=== PATIENT | male | born 1950 | race Caucasian/White ===

== ENCOUNTER → 2022-10-22 17:07 | Outpatient (CLI) | payer MEDICARE, OTHER, SELFPAY ==
[2022-10-22 17:48] LABS: Add Manual Diff / Slide Review NO; Basophils Absolute Auto 0 /uL (0-100); Basophils Percent Auto 0.5 % (0-2); Eosinophils Absolute Auto 300 /uL (0-450); Eosinophils Percent Auto 3.8 % (2-4); Hematocrit 39.7 % (41-53); Hemoglobin 13.4 g/dL (13.5-17.5); Lymphocytes Absolute Auto 1500 /uL (1100-4500); Lymphocytes Percent Auto 17.4 % (25-40); Mean Corpuscular HGB Conc 33.8 % (30-36); Mean Corpuscular Hemoglobin 29.3 PG (26-34); Mean Corpuscular Volume 86.8 fL (80-100); Monocytes Absolute Auto 600 /uL (0-900); Monocytes Percent Auto 6.9 % (3-14); Neutrophils Absolute Auto 6300 /uL (1500-7000); Neutrophils Percent Auto 71.4 % (50-75); Platelet Count 290 X10^3/uL (150-400); Red Blood Cell Count 4.58 X10^6/uL (4.5-5.9); White Blood Cell Count 8.8 X10^3/uL (4.5-11.0)
[2022-10-22 18:10] LABS: Appearance Urine UA CLEAR; Bilirubin Urine UA NEGATIVE (NEGATIVE); Blood Urea Nitrogen 40 mg/dL (9-20); Calcium 9.2 mg/dL (8.4-10.2); Carbon Dioxide 26 mmol/L (22-32); Chloride 105 mmol/L (98-107); Color Urine UA YELLOW; Estimated Glomerular Filt Rate 41 mL/min (>60); Glucose 95 mg/dL (80-110); Glucose Urine UA NEGATIVE (Negative); HEMOLYSIS < 15 (0-50); Ketones Urine UA NEGATIVE (NEGATIVE); Leukocyte Esterase Urine UA NEGATIVE (NEGATIVE); Nitrite Urine UA NEGATIVE (Negative); Occult Blood Urine UA NEGATIVE (Negative); Potassium 4.2 mmol/L (3.4-5.1); Protein Urine UA NEGATIVE (Negative); Sodium 139 mmol/L (137-145); Specific Gravity Urine UA 1.015 (1.000-1.035); Urobilinogen Urine UA 0.2 E.U./dL (0.2); pH Urine UA 5.5 (4.5-8.0)
[2022-10-22 18:31] LABS: Bacteria Urine None Seen; Culture Indicated Urine Cult Not Indicated; RBC Urine None Seen (0-5/HPF); Squamous Epithelial Cell Urine None Seen (0-5/HPF); WBC Urine None Seen (0-5/HPF)
[2022-10-24 08:39] LABS: Labcorp Hemoglobin (Hb) A1c 5.7 % (4.8-5.6)
== END ==
PROVIDERS: PCP Physician Assistant; Referring Provider Orthopaedic Surgery; Visit Provider Orthopaedic Surgery
DX: R73.9 Hyperglycemia, unspecified; Z01.818 Encounter for other preprocedural examination; Z01.812 Encounter for preprocedural laboratory examination; N39.0 Urinary tract infection, site not specified
CPT/HCPCS: 80048; 81001; 83036; 85025

== ENCOUNTER → 2022-10-23 08:20 | Outpatient (CLI) | payer MEDICARE, OTHER, SELFPAY | PROVIDERS: PCP Physician Assistant; Referring Provider Orthopaedic Surgery; Visit Provider Orthopaedic Surgery | DX: Z01.818 Encounter for other preprocedural examination (principal) | CPT/HCPCS: 93005; 93010 ==

== ENCOUNTER 2022-12-03 08:20 | Day surgery (SDC) | payer MEDICARE, OTHER, SELFPAY ==
[2022-11-16 11:56] VITALS: BMI 34.7
[2022-12-03] VITALS (14 sets, daily range): BP systolic 118–193; BP diastolic 61–90; PULSE 60–71; RESP 12–20; TEMP 35.9–36.6; O2SAT 92–98; BMI 34.9
--- NOTE | 2022-12-03 06:00 | DI.RAD.S_ITS ---
PROCEDURE: XR PELVIS 1-2V INDICATIONS: INNER OP TECHNIQUE: Intra-operative view of the pelvis and hip acquired. COMPARISON: None. FINDINGS: Bones: A single AP pelvis film obtained during total right hip arthroplasty demonstrates no abnormalities. No fractures or suspicious bony lesions. Soft tissues: Overlying surgical retractors are present, along with other intraoperative changes. IMPRESSION: Imaging obtained during right hip ORIF without evidence of complications. Dictated by: Erick Argueta M.D. on 12/03/2022 at 15:55 Approved by: Erick Argueta M.D. on 12/03/2022 at 15:56
[2022-12-03] MEDS: ACETAMINOPHEN 325 MG TABLET 975 MG PO (09:10)
[2022-12-03] MEDS: PREGABALIN 75 MG CAPSULE PO (09:10)
[2022-12-03] MEDS: CELECOXIB 200 MG CAPSULE PO (09:10)
[2022-12-03] MEDS: LACTATED RINGERS 1,000 ML 42 ML IV ×2 (09:11→13:27)
[2022-12-03] MEDS: VANCOMYCIN 1,000 MG/200 ML PIGGYBACK 200 MG IV (10:48)
--- NOTE | 2022-12-03 11:09 | PM.PREOP ---
Pre-operative Note COVID-19 COVID-19 status: Negative Interval Note History & Physical reviewed/Exam performed by Physician: Yes Changes to H&P: No
--- NOTE | 2022-12-03 11:10 | P.OP_ITS ---
Operative Date/Time/Diagnoses Date of procedure: 12/03/22 Time of procedure: 11:45 Pre-op diagnosis: right hip OA Post-op diagnosis: same Procedure & Clinicians Procedure: right total hip arthroplasty posterior approach Same procedure as scheduled: Yes Indications: The patient has had progressively worsening right hip pain with radiographic changes consistent with arthritis. Non-operative management has failed and the patient has requested total hip replacement. The risks, benefits and alternatives to surgery were discussed with the patient prior to proceeding. Risks discussed included, but were not limited to, failure to relieve pain, leg length discrepancy, dislocation, stiffness, infection, nerve damage, deep venous thrombosis, pulmonary embolism, stroke, coma, heart attack, permanent paralysis and , as well as the potential need for eventual revision of the prosthetic. Surgeon: Deysi Monroe Guest Service Representative: Bhumi Anguiano Operative Notes Findings: Severe right hip osteoarthritis, adequate stability, adequate bone Closure Type: primary Specimen(s): none sent Prosthetic devices, grafts, tissues, transplants, or devices: Monroe and nephew R3 Estimated Blood Loss (mL): 250 Blood products transfused: none Procedure in detail: The patient was seen in the pre-operative area, where the patient identified the right hip as the operative site and this was marked with my initials. The patient received pre-operative antibiotics and was taken to the operating room and placed on the operative table in the left lateral decubitus position after satisfactory anesthesia. A remote sensing analyst out was performed. The right leg was prepared from the ankle to the iliac crest with ChloroPrep in the usual fashion and draped through sterile drapes. A PA was used throughout the procedure and was essential for retraction and safe implantation of the components. The hip was approached through an approximately 20 cm incision centered over the greater trochanter and curving gently posteriorly as it went proximally. This was carried sharply to the fascia isabelle, which was divided and retracted with a self retaining retractor. The trochanteric bursa was excised with care being taken to avoid the sciatic nerve, which was identified and protected throughout the case. The short external rotators were incised and the capsulomuscular flap was raised and tagged for later repair. The hip was dislocated, and a femoral neck osteotomy performed approximately 15 mm above the lesser trochanter. Retractors were placed around the femur. The canal was opened with a box cutting osteotome, followed by a T handled reamer and a lateralizing reamer. The chili pepper broach was then used, followed by sequential broaching until there was good stability of the broach in the femur. Retractors were placed to expose the acetabulum. The labrum and central soft tissues were removed. Reaming was performed initially going up in 2 mm increments, then 1 mm increments until good bite was obtained with an odd sized reamer. The cup 1 mm larger than the last reamer was then inserted using the appropriate anteversion guides. It was further stabilized with a single screw. A trial neutral liner was placed. The broach was placed in the canal. A trial head and neck were then placed and the hip relocated and checked for leg length and stability. An intraoperative film confirmed the component position and no evidence of fracture. The patient was stable in the position of sleep, of squatting, and could be put through a range of motion with 45 degrees internal rotation without dislocation. At 90 degrees flexion, internal rotation to [] was possible before dislocation. This was felt to be satisfactory and the appropriate components were opened, and the trials were removed. The acetabular liner was impacted into position. The final stem was then impacted into the prepared femoral canal. A brief Betadine soak was performed while trialing with head options. The hip was meticulously irrigated with normal saline. Finally the femoral head was impacted onto the stem. The acetabulum was cleared of all material and the hip relocated one final time. The capsulomuscular flap was then repaired to the greater trochanter though an awl hole using the tag sutures. The short external rotators were repaired with a nonabsorbable suture. The fascia isabelle was closed with Vicryl. The subcutaneous layer was closed with barbed sutures and SteriStrips. An Aquacel Ag dressing was applied and the patient was taken to recovery having tolerated the procedure well. Complications: none Post-operative Condition: stable Disposition: Acute Care Plan for aftercare: The patient will be maintained on a standard total hip replacement protocol with weight bearing as tolerated and posterior hip precautions. The patient will receive Aspirin and sequential compression devices for DVT prophylaxis. The patient will be discharged home when safe for the home environment.
--- NOTE | 2022-12-03 12:10 | PM.OP.1 ---
Operative Date/Time/Diagnoses Date of procedure: 12/03/22 Time of procedure: 11:50 Pre-op diagnosis: Severe right hip OA Post-op diagnosis: same Procedure & Clinicians Procedure: Right total hip arthroplasty posterior approach Same procedure as scheduled: Yes Indications: The patient has had progressively worsening right hip pain with radiographic changes consistent with arthritis. Non-operative management has failed and the patient has requested total hip replacement. The risks, benefits and alternatives to surgery were discussed with the patient prior to proceeding. Risks discussed included, but were not limited to, failure to relieve pain, leg length discrepancy, dislocation, stiffness, infection, nerve damage, deep venous thrombosis, pulmonary embolism, stroke, coma, heart attack, permanent paralysis and , as well as the potential need for eventual revision of the prosthetic. Surgeon: Deysi Monroe Corporate Quality Engineer: Bhumi Anguiano Anesthesia Type: General and Spinal Operative Notes Findings: Severe right hip osteoarthritis, stiff hip, moderate scarring between fascia and bursa, yazidism of leg length, adequate bone quality, adequate stability Closure Type: primary Specimen(s): none sent Prosthetic devices, grafts, tissues, transplants, or devices: Monroe [employer] Nephew R3 size 56, neutral poly liner, one 6.5 mm screw, polar stem size 4 with collar, 36 x +4 cobalt chrome head Estimated Blood Loss (mL): 250 Blood products transfused: none Procedure in detail: The patient was seen in the pre-operative area, where the patient identified the right hip as the operative site and this was marked with my initials. The patient received pre-operative antibiotics and was taken to the operating room and placed on the operative table in the left lateral decubitus position after satisfactory anesthesia. A full time paramedic out was performed. The right leg was prepared from the ankle to the iliac crest with ChloroPrep in the usual fashion and draped through sterile drapes. A PA was used throughout the procedure and was essential for retraction safe implantation of the components. They were also helpful for visualization and hemostasis. The hip was approached through an approximately 20 cm incision centered over the greater trochanter and curving gently posteriorly as it went proximally. This was carried sharply to the fascia isabelle, which was divided and retracted with a self retaining retractor. The trochanteric bursa was excised with care being taken to avoid the sciatic nerve, which was identified and protected throughout the case. The short external rotators were incised and the capsulomuscular flap was raised and tagged for later repair. The hip was dislocated, and a femoral neck osteotomy performed approximately 15 mm above the lesser trochanter. Retractors were placed around the femur. The canal was opened with a box cutting osteotome, followed by a T handled reamer and a lateralizing reamer. The chili pepper broach was then used, followed by sequential broaching until there was good stability of the broach in the femur. Retractors were placed to expose the acetabulum. The labrum and central soft tissues were removed. Reaming was performed initially going up in 2 mm increments, then 1 mm increments until good bite was obtained with an odd sized reamer. The cup 1 mm larger than the last reamer was then inserted using the appropriate anteversion guides. It was further stabilized with a single screw. A trial neutral liner was placed. The broach was placed in the canal. A trial head and neck were then placed and the hip relocated and checked for leg length and stability. An intraoperative film confirmed the component position and no evidence of fracture. The patient was stable in the position of sleep, of squatting, and could be put through a range of motion with 45 degrees internal rotation without dislocation. At 90 degrees flexion, internal rotation to 70? was possible before dislocation. This was felt to be satisfactory and the appropriate components were opened, and the trials were removed. The acetabular liner was impacted into position. The final stem was then impacted into the prepared femoral canal. A brief Betadine soak was performed while trialing with head options. The hip was meticulously irrigated with normal saline. Finally the femoral head was impacted onto the stem. The acetabulum was cleared of all material and the hip relocated one final time. The capsulomuscular flap was then repaired to the greater trochanter though an awl hole using the tag sutures. The short external rotators were repaired with a nonabsorbable suture. The fascia isabelle was closed with Vicryl. The subcutaneous layer was closed with barbed sutures and surgical glue. A Doni dressing was applied and the patient was taken to recovery having tolerated the procedure well. Complications: none Post-operative Condition: stable Disposition: Acute Care Plan for aftercare: The patient will be maintained on a standard total hip replacement protocol with weight bearing as tolerated and posterior hip precautions. The patient will receive Eliquis and sequential compression devices for DVT prophylaxis. The patient will be discharged home when safe for the home environment.
[2022-12-03] MEDS: TRANEXAMIC ACID 1,000 MG VIAL 1000 MG INJ (12:35)
[2022-12-03] MEDS: CEFAZOLIN 2 GM/100 ML PREMIX 100 ML IV ×2 (12:40→21:00)
--- NOTE | 2022-12-03 12:50 | SUR.OPER ---
Lateral on padded OR bed. Gel axillary roll. Arms secured on padded armboard with pillow supporting top arm. Padded hip positioner braces x4 - anterior and posterior chest and pelvis. Additional gel pad used anterior pelvis. Gel pad under bottom leg from knee to foot and secured with tape over sheet.
[2022-12-03] MEDS: BUPIVACAINE LIPOSOME 266 MG/20 ML VIAL INJ (13:02)
[2022-12-03] MEDS: BUPIVACAINE 0.25% (PF) 60 ML, EPINEPHrine 0.3 MG INJ (13:04)
[2022-12-03] MEDS: SODIUM CHLORIDE IRRIG SOLUTION 250 ML, POVIDONE-IODINE SPONGE STICKS 1 APPLIC IRR (13:37)
--- NOTE | 2022-12-03 15:00 | DI.RAD.S_ITS ---
PROCEDURE: XR HIP W PEL IF DONE RT 2V INDICATIONS: POST OP RIGHT HIP TECHNIQUE: AP pelvis and lateral view of the right hip acquired. COMPARISON: [facility], CR, XR PELVIS WITH LATERAL HIP RIGHT, 10/02/2022, 17:51. [facility], CR, XR PELVIS 1-2V, 12/03/2022, 13:45. FINDINGS: Bones: Patient is status post right hip arthroplasty, with hardware components in expected positions. The hip joint appears congruent. The visualized bony structures appear intact. Soft tissues: Overlying postoperative changes are noted. No suspicious soft tissue densities. IMPRESSION: Expected postsurgical change for right hip arthroplasty. Dictated by: Fabiana Saba MD, PhD on 12/03/2022 at 16:19 Approved by: Fabiana Saba MD, PhD on 12/03/2022 at 16:20
[2022-12-03] MEDS: LACTATED RINGERS 1,000 ML 100 ML IV (17:09)
[2022-12-03] MEDS: ACETAMINOPHEN 325 MG TABLET 650 MG PO ×2 (17:14→21:43)
[2022-12-03] MEDS: IBUPROFEN 400 MG TABLET PO (17:15)
[2022-12-03] MEDS: HYDRALAZINE 25 MG TABLET 50 MG PO (20:51)
[2022-12-03] MEDS: ASPIRIN EC 81 MG TABLET PO (20:51)
[2022-12-03] MEDS: AMLODIPINE 5 MG TABLET PO (20:51)
[2022-12-03] MEDS: DOCUSATE 100 MG CAPSULE PO (20:52)
[2022-12-03] MEDS: carvediloL 12.5 MG TABLET 37.5 MG PO (20:52)
[2022-12-03] MEDS: lisinopriL 20 MG TABLET PO (20:52)
[2022-12-04] VITALS (8 sets, daily range): BP systolic 115–129; BP diastolic 47–63; PULSE 60–64; RESP 16–17; TEMP 36.2–36.6; O2SAT 92–93
[2022-12-04] MEDS: CEFAZOLIN 2 GM/100 ML PREMIX 100 ML IV (05:55)
[2022-12-04] MEDS: IBUPROFEN 400 MG TABLET PO ×2 (05:55→10:28)
[2022-12-04] MEDS: ACETAMINOPHEN 325 MG TABLET 650 MG PO ×2 (05:55→10:28)
--- NOTE | 2022-12-04 07:12 | PM.DS.1 ---
History of Present Illness History of Present Illness Date Patient Seen: 12/04/22 Time Patient Seen: 07:12 Chief complaint: Right ZACHERY *OPB* Narrative: Operative Date/Time/Diagnoses Date of procedure: 12/03/22 Time of procedure: 11:50 Pre-op diagnosis: Severe right hip OA Post-op diagnosis: same Procedure & Clinicians Procedure: Right total hip arthroplasty posterior approach Same procedure as scheduled: Yes Indications: The patient has had progressively worsening right hip pain with radiographic changes consistent with arthritis. Non-operative management has failed and the patient has requested total hip replacement. The risks, benefits and alternatives to surgery were discussed with the patient prior to proceeding. Risks discussed included, but were not limited to, failure to relieve pain, leg length discrepancy, dislocation, stiffness, infection, nerve damage, deep venous thrombosis, pulmonary embolism, stroke, coma, heart attack, permanent paralysis and , as well as the potential need for eventual revision of the prosthetic. Surgeon: Deysi Monroe Streetcar Starter: Bhumi Anguiano Anesthesia Type: General and Spinal Operative Notes Findings: Severe right hip osteoarthritis, stiff hip, moderate scarring between fascia and bursa, sabianist of leg length, adequate bone quality, adequate stability Closure Type: primary Specimen(s): none sent Prosthetic devices, grafts, tissues, transplants, or devices: Monroe and Nephew R3 size 56, neutral poly liner, one 6.5 mm screw, polar stem size 4 with collar, 36 x +4 cobalt chrome head Estimated Blood Loss (mL): 250 Blood products transfused: none Discharge Providers Provider Discharge Date: 12/04/22 Primary care physician: Jerome Dong PA-C Consults: 11/16/22 12:58 Consult to Anesthesiology Routine Comment: Consulting Provider: Anesthesiologist Reason for consultation: Surgeon requested re: Cardiac history 12/03/22 06:00 Consult to Anesthesiology Routine Comment: Consulting Provider: Anesthesiologist Reason for consultation: Regional block for post operative pain control 12/03/22 16:10 Consult to Discharge Planning Routine Comment: Consult to Occupational Therapy Evaluate & Treat Comment: Physician Instructions: Evaluate and treat Consult to Physical Therapy Evaluate & Treat Comment: Physician Instructions: post op ZACHERY protocol Discharge provider: Becky Mendoza PA-C Summary Hospital Course Discharge Diagnosis: Right hip osteoarthritis, s/p right total hip arthroplasty Hospital Course: Mr Rodriguez'yarelis hospital course was unremarkable. On the morning of POD# 1, he was feeling well and wanted to go home. He had not yet been OOB or worked w/ PT, but he was eating and voiding without difficulty. His pain was well-controlled with oral medication. Exam Vital Signs (past 8 hours): - 12/04/22 00:40 12/04/22 06:00 Temperature 97.2 F L 97.6 F Pulse Rate 62 62 Respiratory Rate 17 16 Blood Pressure 115/61 129/54 L Pulse Oximetry 92 92 Oxygen Flow Rate 0 0 Oxygen Delivery Method Room Air Oxygen Flow Rate 0 Narrative Exam Narrative: 5/5 strength in hip flexors, quadriceps, hamstrings, DF, PF, EHL on right. Sensation to light touch intact throughout RLE. Calf soft, compressible, nontender. Aquacel dressing CDI. [facility] Medical History (Updated 11/16/22 @ 12:37 by Shavonne German RN) CAD (coronary artery disease) CHF (congestive heart failure) (~2015) History of COVID-19 (~2019) HLD (hyperlipidemia) HTN (hypertension) LAFB (left anterior fascicular block) Melanoma (1986) Nonischemic cardiomyopathy Osteoarthritis Pacemaker (01/23/22) Prostate cancer (2012) RBBB (right bundle branch block) Surgical History (Updated 11/16/22 @ 12:37 by Shavonne German RN) H/O vasectomy History of ankle surgery History of total left knee replacement History of total right knee replacement Hx of cardiac cath (~2015) Hx of prostatectomy (2012) Social History household members: spouse Smoking Status: Never smoker alcohol intake: never Discharge Assessment & Plan Assessment and Plan Assessment: Right hip osteoarthritis, s/p right total hip arthroplasty Plan of Treatment: Discharge home after PT if PT agrees. Pt has pain med rxs at home. Will continue ASA and Eliquis as preop for VTE prophylaxis. Outpt PT, f/u in office in 2 weeks as scheduled. Discharge Plan Discharge Plan Patient Disposition: Home Discharge orders & Medications Discharge Orders: Discharge (Order); Ordered 12/04/22 Ordered By: Becky Mendoza Prescriptions: Continued carvedilol 25 mg Tablet 37.5 mg PO BID Rx Instructions: must administer with a meal/food amiodarone 200 mg Tablet 200 mg PO DAILY lisinopril 20 mg Tablet 20 mg PO BID amlodipine 5 mg Tablet 5 mg PO BID aspirin [Aspir-81] 81 mg Tablet,Delayed Release (Dr/Ec) 81 mg PO DAILY hydralazine 50 mg Tablet 50 mg PO BID furosemide 20 mg Tablet 20 mg PO QAM diphenhydramine-acetaminophen [Acetaminophen PM] 25-500 mg Tablet 2 tab PO BEDTIME PRN (Reason: Pain, sleep) Eliquis 5 mg Tablet 5 mg PO BID Follow up/Referrals: Jerome Dong PA-C [Primary Care Provider] - Deysi Monroe MD [Physician] - As previously scheduled (Follow up w/ Monisha Anguiano PA-C, on 12/18/2022 @ 10:30 am at [facility] in [place].) Diet/Activity/Treatments Diet: Diet as Tolerated Activity: Weightbearing as tolerated to right leg. Posterior hip precautions. Cold/Heat Therapy: Ice to hip as needed for pain. Skin/Wound/Dressing Care Report to your healthcare provider any signs of infection, such as:: chills, fever, night sweats, unusual drainage and unusual redness Dressing: May shower. Leave dressing in place until follow up in office. No bathing or otherwise soaking incision. Call the office if the dressing becomes saturated inside. Visit Report/Discharge Packet Instructions: DI for Hip Replacement Stand Alone Forms: Patient Portal/API, Surgery Discharge Discharge Data Primary Care Provider: Jerome Dong Attending Provider: Deysi Monroe Quality VTE Deep Vein Thrombosis/Pulmonary Embolism Present on Admission: No
[2022-12-04 07:36] LABS: Hematocrit 35.6 % (41-53)
[2022-12-04] MEDS: AMIODARONE 200 MG TABLET PO (08:27)
[2022-12-04] MEDS: ASPIRIN EC 81 MG TABLET PO (08:27)
[2022-12-04] MEDS: HYDRALAZINE 25 MG TABLET 50 MG PO (08:27)
[2022-12-04] MEDS: lisinopriL 20 MG TABLET PO (08:28)
[2022-12-04] MEDS: carvediloL 12.5 MG TABLET 37.5 MG PO (08:29)
[2022-12-04] MEDS: AMLODIPINE 5 MG TABLET PO (08:29)
[2022-12-04] MEDS: FUROSEMIDE 20 MG TABLET PO (08:30)
--- NOTE | 2022-12-04 09:38 | OT.IP.EVAL ---
Current Diagnoses Unilateral primary osteoarthritis, right hip (12/03/22) Surgery Performed Operation Date: 12/03/22 10:45 Actual Procedures p Total Hip Arthroplasty(Right) - Deysi Monroe MD Past Medical History (Last Updated 11/16/22 @ 12:37 by Shavonne German, RN) CAD (coronary artery disease) CHF (congestive heart failure) (~2015) History of COVID-19 (~2019) HLD (hyperlipidemia) HTN (hypertension) LAFB (left anterior fascicular block) Melanoma (1986) Nonischemic cardiomyopathy Osteoarthritis Pacemaker (01/23/22) Prostate cancer (2012) RBBB (right bundle branch block) Surgical History (Last Updated 11/16/22 @ 12:37 by Shavonne German, SARAH) H/O vasectomy History of ankle surgery History of total left knee replacement History of total right knee replacement Hx of cardiac cath (~2015) Hx of prostatectomy (2012) Occupational Therapy Inpatient Evaluation/Re-Eval M1 PT/OT-IP Prior Functional Status Start: 12/04/22 10:33 Freq: NEEDED Status: Active Protocol: Document 12/04/22 10:34 CGR (Rec: 12/04/22 10:54 CGR [id number]) Medical Review Prior Functional Status Medical History Reviewed Yes Communication Pt is an effective verbal communicator. Mobility and Gait Pt was IND at baseline but sometimes used a SPC as pain increased Activities of Daily Living and IADL's Pt was IND for most ADLs but needed assist with LB dressing to the RLE. Social History Household Members spouse Living Arrangements House Number of Floors (Floors) Two Floors Number of Stairs To Enter/Railing? 1 5 inch step to enter and stays on the entry level account representative. Home Environment Standard Height Toilet,Walk in Shower,Built-In Shower Seat Home Equipment Front Wheel Walker,Straight Cane,Shower Seat without Backrest,Hand Held Shower Employment Status Retired Additional Social History Comment Pt lives in his long time home on the main level and does not go upstairs. Pt's daughter and family live in the upstairs and pt's assists with all needs. M2 OT-IP Current Condition Start: 12/04/22 10:33 Freq: Status: Active Protocol: Document 12/04/22 10:34 CGR (Rec: 12/04/22 10:54 CGR [id number]) Occupational Therapy Current Condition Current Condition Evaluation Date 12/04/22 Treatment Diagnosis R ZACHERY posterior Diagnosis Onset Date 12/03/22 Post Operative Precautions Posterior Hip Precautions No Hip Flexion > 90 degrees,No Hip Internal Rotation,No Hip Adduction Weight Bearing Status Weight Bearing Status Weight Bear as Tolerated M3 OT- IP Subjective and Pain Start: 12/04/22 10:33 Freq: Status: Active Protocol: Document 12/04/22 10:34 CGR (Rec: 12/04/22 10:54 CGR [id number]) OT- Subjective Occupational Therapy Visit Type Type Initial Evaluation Visit Start Time 08:41 Visit Stop Time 09:38 Total Visit Minutes 57 Notes Pt's present throughout OT Pain Assessment Pain When Pain Assessed At Rest Pain Present Pain Present Pain Reported Location R hip Intensity 4 Scale Used Numeric (0 - 10) Management Techniques Distraction,Modification of Treatment,Re-positioning, Timing of Activity with Medications M4 OT- IP ADL's Start: 12/04/22 10:33 Freq: Status: Active Protocol: Document 12/04/22 10:34 CGR (Rec: 12/04/22 10:54 CGR [id number]) OT [id number]-[id number] General Evaluation Self-Feeding Ability Independent Comments OT Self-Feeding Comments Pt finishing breakfast when OT entered OT ADL-Grooming General Evaluation Grooming Ability Independent Areas Needing Assistance Face Washing Comments OT Grooming Comments standing at sink OT ADL-Oral Care General Eval Oral Care Ability Independent Areas of Assistance Brushing Teeth Comments Oral Care Comments standing at sink OT ADL-Dressing General Eval Lower Body Dressing Ability Total Assistance Areas Needing Assistance Socks Comments OT Dressing Comments Pt educated on use of ground operations supervisor and sock aide but declined to perform. Pt states his will assist. OT ADL-Toileting General Evaluation Toileting Ability Independent Comments OT Toileting Comments Pt simulated urination seated on toielt OT ADL-Bathing Comments OT Bathing Comments not performed M5 OT- IP IADL's Start: 12/04/22 10:33 Freq: Status: Active Protocol: Document 12/04/22 10:34 CGR (Rec: 12/04/22 10:54 R [id number]) OT-Instrumental Activities of Daily Living Deficits IADL Deficits Identified No Deficits Home Safety Awareness Awareness of Need for Assistance at Home Good Awareness Ability to Problem Solve Emergency Able to Problem Solve Situations Medication Management Medication Management Caregiver Administers Money Management Money Management Caregiver Provides Assistance Meal Preparation Meal Preparation Caregiver Provides Assist Refueling Rampman Refueling Rampman Caregiver Provides Assist Driving Driving Comments Pt's will drive M6 OT- IP Functional Cognition Start: 12/04/22 10:33 Freq: Status: Active Protocol: Document 12/04/22 10:34 CGR (Rec: 12/04/22 10:54 R [id number]) Cognitive Factors Limiting Selfcare Function Cognitive Ability Level of Alertness Alert Patient Orientation Name,Age,Birthday,Month,Date, Year,Day of Week,Place, Situation Attention Span Ability Capable of Focused Attention, Capable of Sustained Attention Ability to Follow Commands Able to Follow One Step Commands with Increased Time, Able to Follow One Step Commands with Repetition Cognitive Comments Cognitive Assessment Comments Pt did ask the same question twice with ~20 minutes in between asking but no other identified concerns with cognition. OT- Vision and Hearing OT- Hearing Assessment OT- Hearing Assessment WFL OT- Vision Assessment Visual Acuity Glasses All The Time Visual Attentiveness WFL Occular Pursuits WFL Visual Convergence WFL M7 OT- IP Mobility and Balance Start: 12/04/22 10:33 Freq: Status: Active Protocol: Document 12/04/22 10:34 CGR (Rec: 12/04/22 10:54 R [id number]) OT- Bed Mobility Assessment Supine to Sit Supine to Sit Assist Standby Assistance Scooting Scooting to Edge of Bed Standby Assistance OT-Transfer Assessment Sit to and From Stand Sit to and from Stand Standby Assistance Transfers Transfer Ability Standby Assistance Technique Transfer Destination Bed,Chair,Toilet Transfer Technique Stand Step Pivot Devices Transfer Assistive Devices Gait Belt,Front Wheeled Walker Comments Mobility Comments Pt uses the walker with a slightly higher height then typically recommend as he is unable to fully extend his elbows at his baseline. Pt ambulates around the room with SBA and FWW. OT- Gait Assessment Gait Gait Assistance Required: Standby Assistance Assistive Devices Assistive Device Gait Belt,Front Wheeled Walker OT- Balance Assessment Sitting Balance and Reactions Static Sitting Balance Ability Normal Dynamic Sitting Balance Ability Good M8 OT- IP Objective Assessments Start: 12/04/22 10:33 Freq: Status: Active Protocol: Document 12/04/22 10:34 CGR (Rec: 12/04/22 10:54 R [id number]) OT Gross Range of Motion Upper Extremity Range of Motion Assessment Within Functional Limits OT Strength Upper Extremity Strength Assessment Within Functional Limits OT- Coordination Assessment Upper Extremity Finger to Nose Test Within Functional Limits Finger Tapping Test Within Functional Limits OT-Muscle Tone Assessment Muscle Tone WNL Yes OT Sensation Assessment Edema Edema Absent M9 OT- IP Assessment and Plan Start: 12/04/22 10:33 Freq: Status: Active Protocol: Document 12/04/22 10:34 CGR (Rec: 12/04/22 10:54 CGR [id number]) OT Summary Assessment and Plan Potential Rehabilitation Potential Excellent Analytic Complexity at Evaluation Low Summary OT Impairments Pain,Balance,Functional Mobility,Grooming,Dressing, Toileting,Bathing,Toilet Transfers,Shower Transfers, Activity Tolerance Progress Towards Goals Progressing Toward Goals Assessment Summary Pt presents as a low complexity evaluation s/p admit for R ZACHERY. Pt is WBAT and ambulating around the room with SBA. Pt is safe for discharge home at this time. Pt could benefit from further OT services while hospitalized for greater understanding of LB dressing and bathing assessment. Recommendation is home with assist. Goals Grooming Goal Independent Dressing Goal Independent,Cut Off Saw Tender Metal,Sock Aid Toileting Goal Independent Bathing Goal Independent Toilet Transfer Goal Independent Shower Transfer Goal Independent Days to Meet Goals 10 Frequency of Treatment Frequency Of Treatment Once a Day Treatment Plan OT Treatment Plan ADL Training,Functional Mobility,Patient/Family Education,Discharge Planning Other Treatment Recommendations and Next shower Treatment Focus Discharge Recommendations OT Discharge Recommendations Home with Assistance Transportation Needs at Discharge Private Vehicle
--- NOTE | 2022-12-04 11:31 | PT.IIE ---
Current Diagnoses Unilateral primary osteoarthritis, right hip (12/03/22) Surgery Performed Operation Date: 12/03/22 10:45 Actual Procedures p Total Hip Arthroplasty(Right) - Deysi Monroe MD Surgical History (Last Updated 11/16/22 @ 12:37 by Shavonne German RN) H/O vasectomy History of ankle surgery History of total left knee replacement History of total right knee replacement Hx of cardiac cath (~2015) Hx of prostatectomy (2012) Medical History (Last Updated 11/16/22 @ 12:37 by Shavonne German RN) CAD (coronary artery disease) CHF (congestive heart failure) (~2015) History of COVID-19 (~2019) HLD (hyperlipidemia) HTN (hypertension) LAFB (left anterior fascicular block) Melanoma (1986) Nonischemic cardiomyopathy Osteoarthritis Pacemaker (01/23/22) Prostate cancer (2012) RBBB (right bundle branch block) Physical Therapy Inpatient Evaluation/Re-Eval M1 PT/OT-IP Prior Functional Status Start: 12/04/22 13:07 Freq: NEEDED Status: Active Protocol: Document 12/04/22 11:31 AB (Rec: 12/04/22 13:16 AB [id number]) Medical Review Prior Functional Status Medical History Reviewed Yes Communication able to make needs known Mobility and Gait pt stated that he is independent with all mobilties and ambulation without AD but has been using a SPC for the last 2 months due to hip pain Activities of Daily Living and IADL's per OT note:Pt was IND for most ADLs but needed assist with LB dressing to the RLE. Social History Household Members spouse Living Arrangements House Number of Floors (Floors) Two Floors Number of Stairs To Enter/Railing? pt stays on the main level of the house 1 step to enter Home Environment Standard Height Toilet,Walk in Shower,Built-In Shower Seat Home Equipment Front Wheel Walker,Straight Cane,Shower Seat without Backrest,Hand Held Shower,Grab Bars Near Toilet,Grab Bars In Shower Employment Status Retired Additional Social History Comment Pt lives in his long time home on the main level and does not go upstairs. Pt's daughter and family live in the upstairs and pt's assists with all needs. M2 PT-IP Current Condition Start: 12/04/22 13:07 Freq: NEEDED Status: Active Protocol: Document 12/04/22 11:31 AB (Rec: 12/04/22 13:16 AB [id number]) Physical Therapy Current Condition Current Condition Evaluation Date 12/04/22 Treatment Diagnosis s/p R ZACHERY posterior approach; difficulty in walking Onset Date 12/03/22 M3 PT-IP Subjective Start: 12/04/22 13:07 Freq: NEEDED Status: Active Protocol: Document 12/04/22 11:31 AB (Rec: 12/04/22 13:16 AB [id number]) Subjective Physical Therapy Visit Type Type Initial Evaluation Visit Start Time 11:31 Visit Stop Time 12:01 Total Visit Minutes 30 Number of FRONT END LOADER OPERATOR Visits 0 Physical Therapy Visit Comments Patient Comments agreeable to do PT Therapy Pain Assessment Pain When Pain Assessed At Rest Pain Present Pain Present Pain Reported Location R hip Intensity 5 Scale Used Numeric (0 - 10) Description With Movement Pain Management Techniques Apply Cold,Modification of Treatment,Re-positioning, Timing of Activity with Medications M4 PT-IP Mobility and Gait Start: 12/04/22 13:07 Freq: NEEDED Status: Active Protocol: Document 12/04/22 11:31 AB (Rec: 12/04/22 13:16 AB [id number]) PT-Bed Mobility Assessment Supine to Sit Supine to Sit Standby Assistance Sit to Supine Sit to Supine Standby Assistance PT-Transfer Assessment Sit to and From Stand Sit to and from Stand Standby Assistance,Contact Guard Assistance,1 Person Assistance,Use of Upper Extremities Equipment Transfer Assistive Device Gait Belt,Front Wheeled Walker Orthotic/Prosthetic Devices or Brace: No Transfers Transfer Destination Bed Transfer Technique ambulated Transfer Ability Level of Assist Standby Assistance,Contact Guard Assistance,1 Person Assistance,Use of Upper Extremities Comments Mobility Comments pt sitting on the chair. spouse in room. educated pt and spouse regarding R ZACHERY posterior precautions. pt able to recall. completed sit to stand from the chair CGA and ambulated in room using FWW SBA to CGA. pt can be impulsive. cued to slow down. pt sat on EOB and completed sit<>supine SBA. pt agreed to do stairs. educated pt and spouse on stair climbing. pt completed sit to stand from the EOB SBA and ambulated towards platform step using FWW SBA. completed up/down step SBA to CGA using FWW with PT providing cues. repeated again with spouse assisting. pt ambulated back to his room and sat on the chair using FWW SBA. positioned pt on the chair. call light and table placed within reach. pt and spouse without further concerns. Gait Assessment Gait Gait Assistance Required: Standby Assistance,Contact Guard Assist Distance (Feet) 40 Able to Maintain Weight Bearing Status Yes During Gait Assistive Devices Assistive Device Gait Belt,Front Wheeled Walker Orthotic/Prosthetic Devices or Brace: No Gait Deviations General Gait Pattern Antalgic,Decreased Stride Length,Decreased Feet Clearance Factors Limiting Gait Function Factors Limiting Gait Function Decreased Activity Tolerance, Decreased Strength,Limited Range of Motion,Pain,Poor Balance,Poor Safety Awareness Stair Climbing Assessment Evaluation Level of Assist On Stairs Standby Assistance,Contact Guard Assistance Devices Stair Climbing Assistive Devices Front Wheel Walker Technique/Endurance Stair Climbing Direction Ascend and Descend Stair Climbing Technique Step to Step Number of Steps Climbed 1 Query Text: Stair Climbing Set # Repetitions (reps) 2 PT-Balance Assessment Sitting Balance and Reactions Static Sitting Balance Ability Normal Dynamic Sitting Balance Ability Normal Standing Balance and Reactions Static Standing Balance Ability Good Dynamic Standing Balance Ability Fair Device Used FWW M5 PT-IP Objective Assessments Start: 12/04/22 13:07 Freq: NEEDED Status: Active Protocol: Document 12/04/22 11:31 AB (Rec: 12/04/22 13:16 [email or web address] Orientation Orientation/Cognition Level of Alertness Alert Orientation Name,Place,Situation Language Function Ability No Deficits Noted Safety Awareness Understands Safety Issues Memory Description No Deficits Noted Gross Range of Motion Lower Extremity ROM Assessment Within Functional Limits Strength Lower Extremity Strength Assessment Right Impaired Hip 3+/5 Knee 4-/5 Coordination Assessment Gross Coordination Gross Coordination WNL Sensation Assessment Sensation Gross Sensation WNL Muscle Tone Muscle Tone WNL Yes M6 PT-IP Treatment Start: 12/04/22 13:07 Freq: NEEDED Status: Active Protocol: Document 12/04/22 11:31 AB (Rec: 12/04/22 13:16 AB [id number]) Physical Therapy Treatment Education Education Provided Precautions,Weight Bearing Status,Post-Op Packet,Safety M7 PT-IP Assessment and Plan Start: 12/04/22 13:07 Freq: NEEDED Status: Active Protocol: Document 12/04/22 11:31 AB (Rec: 12/04/22 13:16 AB [id number]) PT Summary Assessment and Plan Potential Rehabilitation Potential Good Status of Condition at Evaluation Stable Summary Impairments Pain,ROM,Strength,Balance, Coordination,Bed Mobility, Transfers,Gait,Activity Tolerance Assessment Summary Pt s/p R ZACHERY posterior approach POD 1. pt requiring SBA to CGA with mobility using FWW. spouse will be able to assist pt if needed. pt has outpt PT set up. pt may go home when medically stable. Goals Bed Mobility Goal Independent Transfer Goal Independent,Front Wheeled Walker Gait Goal Independent,Front Wheel Walker Gait Distance 200 Other Goals up/down 1 platform step using FWW SBA Days to Meet Goals 5 Frequency of Treatment Frequency Of Treatment Twice a Day Treatment Plan Physical Therapy Treatment Plan Bed Mobility Training,Transfer Training,Gait Training, Therapeutic Exercise,Balance Retraining,Post Op Education, Discharge Planning,Hot or Cold Pack,Neuromuscular Re-ed, Coordination Retraining,Manual Therapy Precautions Posterior Hip Precautions No Hip Flexion > 90 degrees,No Hip Internal Rotation,No Hip Adduction Weight Bearing Status Weight Bearing Status Weight Bear as Tolerated Allowed Weight Bearing Amount (enter % RLE WBAT or #) (%) Recommendations To Nursing Amount of Assist Needed 1 Person Assist Discharge Recommendations PT Discharge Recommendations Home with Assistance, Outpatient PT Transportation Needs at Discharge Private Vehicle
== END 2022-12-04 13:30 | disposition home or self-care (01) ==
LOC: OR 08:22 → AC 11:28
PROVIDERS: PCP Physician Assistant; Referring Provider Orthopaedic Surgery; Visit Provider Orthopaedic Surgery
PROC: 0SR90JZ Replacement of Right Hip Joint with Synthetic Substitute, Open Approach (ICD-10-PCS; CPT 27130; principal; 2022-12-03 10:45)
DX: M16.11 Unilateral primary osteoarthritis, right hip (principal); Z95.0 Presence of cardiac pacemaker; I11.0 Hypertensive heart disease with heart failure; I50.9 Heart failure, unspecified
CPT/HCPCS: 27130; 36415; 72170; 73502; 85014; 85018; 97161; 97165; 97535; C1776; C9290; J0171; J0330; J0690; J1100; J2405; J2704; J3010